=== PATIENT | female | born 1945 | race Asian ===

== ENCOUNTER 2018-01-15 14:06 | Inpatient (IN) | payer MEDICARE, OTHER ==
[~2018-01-15] VITALS: Ht 157.5 cm; Wt 61.3 kg
[2018-01-15 15:04] LABS: Eosinophils # (auto) 0 uL; Eosinophils % (auto) 0.1 % (0.0-7.0); Red Blood Cells 4.47 10^6/uL (4.0-5.20)
[2018-01-15 15:06] LABS: Basophils # (auto) 0.1 uL; Basophils % (auto) 0.4 % (0.0-2.0); Hematocrit 44.9 % (36.0-46.0); Hemoglobin 15.3 g/dL (12.2-16.2); Lymphocytes # (auto) 0.8 uL; Lymphocytes % (auto) 6.1 % (10.0-50.0); Mean Corpuscular Hemoglobin 34.2 pg (28.0-32.0); Mean Corpuscular Volume 100.7 fL (80.0-100.0); Monocytes # (auto) 0.5 uL; Neutrophils # (auto) 11.9 uL; Neutrophils % (auto) 89.4 % (37.0-80.0); Platelet Count (auto) 144 10^3/uL (140-450); Red Cell Distribution Width 12.8 % (11.8-14.3); White Blood Cell 13.3 10^3/uL (4.4-10.8)
[2018-01-15 15:16] LABS: Urine Bacteria NONE SEEN /hpf (None Seen); Urine Blood TRACE /uL (Negative); Urine Mucus FEW (None Seen); Urine WBC 1 /hpf (0 - 5)
[2018-01-15] MEDS ORDERED: SODIUM CHLORIDE 0.9% 1,000 ML IVB ONE (15:23)
[2018-01-15 15:29] LABS: Anion Gap 9 (5-15); BUN/Creatinine Ratio 23.2; Blood Urea Nitrogen 16 mg/dL (7-18); Carbon Dioxide 25 mmol/L (21-32); Chloride 105 mmol/L (98-107); GFR African American 108 mL/min; Glucose 220 mg/dL (74-106); Potassium 4.1 mmol/L (3.5-5.1); Sodium 139 mmol/L (136-145)
[2018-01-15 15:30] LABS: Alanine Aminotransferase 24 U/L (13-56); Albumin 3.8 g/dL (3.4-5.0); Alkaline Phosphatase 55 U/L (45-117); Aspartate Aminotransferase 18 U/L (15-37); Bilirubin, Total 0.5 mg/dL (0.2-1.0); Calcium 9.1 mg/dL (8.5-10.1); GFR Non-African American 89 mL/min; Total Protein 8.3 g/dL (6.4-8.2)
[2018-01-15] MEDS ORDERED: MORPHINE SULFATE 8mg/ml INJ SDV IV ONE ×2 (15:30→19:15)
[2018-01-15] MEDS ORDERED: ONDANSETRON HCL 4 MG/2 ML VIAL IV ONE ×2 (15:30→19:15)
[2018-01-15] MEDS ORDERED: MORPHINE SULF INJ 2 MG/ML SYRINGE 1ML ONE (15:44)
[2018-01-15 15:52] LABS: Magnesium 2.4 mg/dL (1.6-2.6)
[2018-01-15 16:04] LABS: INR 0.87 (0.9-1.15); Prothrombin Time 9.4 sec (9.27-12.13)
[2018-01-15] MEDS ORDERED: PIPERACILLIN-TAZOB 3.375GM 100 ML IV ONE (16:30)
[2018-01-15] MEDS ORDERED: metroNIDAZOLE 500MG/100ML 100 ML IV ONE (16:30)
[2018-01-15] MEDS: SODIUM CHLORIDE 0.9% 1,000 ML IV SCH (19:09)
[2018-01-15] MEDS ORDERED: DOCUSATE SOD 100 MG CAP PO PRN (19:15)
[2018-01-15] MEDS ORDERED: DEXTROSE (50%) 50ML SYRG IV PRN (19:15)
[2018-01-15] MEDS ORDERED: HYDROcodone-ACET 5/325MG TAB PO PRN (19:15)
[2018-01-15] MEDS ORDERED: ACETAMINOPHEN 325 MG TAB PO PRN (19:15)
[2018-01-15] MEDS ORDERED: ONDANSETRON HCL 4 MG/2 ML VIAL IV PRN (19:15)
[2018-01-15] MEDS ORDERED: cefTRIAXone 1GM/10ml IVPUSH 10 ML IV ONE (19:15)
[2018-01-15] MEDS ORDERED: SODIUM CHLORIDE 0.9% 2,000 ML IV ONE (19:15)
[2018-01-15] MEDS ORDERED: MORPHINE SULFATE 8mg/ml INJ SDV IV PRN (19:15)
[2018-01-15] MEDS ORDERED: MORPHINE SULFATE INJECTION 1 ML ONE (19:52)
[2018-01-15 21:01] VITALS: BP 158/69
[2018-01-15] MEDS: ASCORBIC ACID 500 MG TAB PO SCH (21:58)
[2018-01-15 22:00] VITALS: BP 152/69
[2018-01-15] MEDS: ACCU-CHEK COMFORT CURVE STRIP VI SCH (22:00)
[2018-01-15] MEDS: InsuLIN REG 1unit/0.01ml Soln (100units/ml) SC SCH (22:00)
[2018-01-15] MEDS: metroNIDAZOLE 500MG/100ML 100 ML IV SCH (22:00)
[2018-01-15] MEDS: TEMAZEPAM 15 MG CAP PO PRN (22:24)
[2018-01-16 04:57] VITALS: BP 97/54
[2018-01-16] MEDS: SODIUM CHLORIDE 0.9% 1,000 ML IV SCH ×3 (05:44→22:23)
[2018-01-16 05:52] LABS: Basophils # (auto) 0 uL; Basophils % (auto) 0.4 % (0.0-2.0); Eosinophils # (auto) 0 uL; Hematocrit 38.6 % (36.0-46.0); Hemoglobin 13.2 g/dL (12.2-16.2); Lymphocytes # (auto) 0.8 uL; Lymphocytes % (auto) 6.8 % (10.0-50.0); Mean Corpuscular Hemoglobin 34.5 pg (28.0-32.0); Mean Corpuscular Hgb Conc. 34.1 g/dL (32.0-36.0); Mean Corpuscular Volume 101.3 fL (80.0-100.0); Monocytes # (auto) 0.8 uL; Monocytes % (auto) 6.6 % (0.0-12.0); Neutrophils # (auto) 10.2 uL; Neutrophils % (auto) 86.2 % (37.0-80.0); Platelet Count (auto) 116 10^3/uL (140-450); Red Blood Cells 3.81 10^6/uL (4.0-5.20); Red Cell Distribution Width 12.4 % (11.8-14.3); White Blood Cell 11.8 10^3/uL (4.4-10.8)
[2018-01-16 06:16] LABS: Albumin 2.6 g/dL (3.4-5.0); BUN/Creatinine Ratio 27.9; Calcium 7.5 mg/dL (8.5-10.1); Potassium 3.6 mmol/L (3.5-5.1)
[2018-01-16 06:19] LABS: Bilirubin, Total 0.7 mg/dL (0.2-1.0); Total Protein 6.5 g/dL (6.4-8.2)
[2018-01-16] MEDS: ACCU-CHEK COMFORT CURVE STRIP VI SCH ×4 (06:26→22:24)
[2018-01-16] MEDS: metroNIDAZOLE 500MG/100ML 100 ML IV SCH ×3 (06:26→22:23)
[2018-01-16] MEDS: InsuLIN REG 1unit/0.01ml Soln (100units/ml) SC SCH ×4 (06:31→22:00)
[2018-01-16 08:00] VITALS: BP 96/54
[2018-01-16 09:00] VITALS: BP 96/54
[2018-01-16] MEDS: ZINC SULFATE 220 MG CAP PO SCH (10:02)
[2018-01-16] MEDS: cefTRIAXone 1GM/10ml IVPUSH 10 ML IV SCH (10:02)
[2018-01-16] MEDS: MULTIPLE VITAMIN TAB PO SCH (10:03)
[2018-01-16] MEDS: ASCORBIC ACID 500 MG TAB PO SCH ×2 (10:03→22:24)
[2018-01-16 13:00] VITALS: BP 108/58
[2018-01-16] MEDS ORDERED: EMPA1TAB PO (16:27)
[2018-01-16] MEDS ORDERED: METF-370 PO (16:27)
[2018-01-16] MEDS ORDERED: ATOR10TA52 PO (16:28)
[2018-01-16] MEDS ORDERED: LOSA25TA9 PO (16:28)
[2018-01-16 16:59] VITALS: BP 92/59
[2018-01-16 22:00] VITALS: BP 107/59
[2018-01-16] MEDS: TEMAZEPAM 15 MG CAP PO PRN (22:25)
[2018-01-17 05:00] VITALS: BP 110/59
[2018-01-17 06:00] LABS: Basophils # (auto) 0 uL; Basophils % (auto) 0.7 % (0.0-2.0); Eosinophils # (auto) 0.1 uL; Hemoglobin 12.4 g/dL (12.2-16.2); Neutrophils # (auto) 4.3 uL
[2018-01-17 06:03] LABS: Hematocrit 36.3 % (36.0-46.0); Lymphocytes % (auto) 16.8 % (10.0-50.0); Mean Corpuscular Hemoglobin 34.8 pg (28.0-32.0); Mean Corpuscular Hgb Conc. 34.2 g/dL (32.0-36.0); Mean Corpuscular Volume 101.6 fL (80.0-100.0); Monocytes # (auto) 0.4 uL; Monocytes % (auto) 6.6 % (0.0-12.0); Neutrophils % (auto) 74.9 % (37.0-80.0); Red Blood Cells 3.57 10^6/uL (4.0-5.20); Red Cell Distribution Width 12.7 % (11.8-14.3); White Blood Cell 5.7 10^3/uL (4.4-10.8)
[2018-01-17 06:10] LABS: Platelet Count (auto) 99 10^3/uL (140-450)
[2018-01-17 06:12] LABS: Calcium 7.5 mg/dL (8.5-10.1); Potassium 3.7 mmol/L (3.5-5.1)
[2018-01-17 06:14] LABS: BUN/Creatinine Ratio 30.8
[2018-01-17] MEDS: metroNIDAZOLE 500MG/100ML 100 ML IV SCH ×3 (06:32→22:14)
[2018-01-17] MEDS: SODIUM CHLORIDE 0.9% 1,000 ML IV SCH ×3 (06:32→18:40)
[2018-01-17] MEDS: InsuLIN REG 1unit/0.01ml Soln (100units/ml) SC SCH ×4 (06:32→22:00)
[2018-01-17] MEDS: ACCU-CHEK COMFORT CURVE STRIP VI SCH ×4 (06:32→22:14)
[2018-01-17] MEDS ORDERED: SUCCINYLCHOLINE CHLORIDE 20 MG/ML 10ML VIAL IV ONE (07:31)
[2018-01-17 08:00] VITALS: BP 119/70
[2018-01-17] MEDS ORDERED: LIDOCAINE HCL 2 %PF INJ 10ML AMP IJ ONE (08:16)
[2018-01-17] MEDS ORDERED: ETOMIDATE (2MG/ML) 20ML VIAL IV ONE (08:16)
[2018-01-17] MEDS ORDERED: MIDAZOLAM HCL 1MG/1ML-2 ML VIAL ONE (08:16)
[2018-01-17] MEDS ORDERED: ceFAZolin 1GM/100ML 100 ML IV ONE (08:31)
[2018-01-17 09:00] VITALS: BP 119/70
[2018-01-17] MEDS: cefTRIAXone 1GM/10ml IVPUSH 10 ML IV SCH (09:00)
[2018-01-17] MEDS ORDERED: POVIDONE IODINE 10 % TOPICAL OINT 30GM TOP ONE (09:04)
[2018-01-17] MEDS ORDERED: ACCU-CHEK COMFORT CURVE STRIP VI ONE (09:15)
[2018-01-17] MEDS ORDERED: ONDANSETRON HCL 4 MG/2 ML VIAL IV ONE (09:15)
[2018-01-17] MEDS ORDERED: NALOXONE HCL 0.4 MG/ML VIAL IV PRN (09:15)
[2018-01-17] MEDS ORDERED: MORPHINE SULFATE 8mg/ml INJ SDV IV PRN (09:15)
[2018-01-17] MEDS ORDERED: fentaNYL CITRATE 100 MCG/2 ML VL ONE (09:30)
[2018-01-17] MEDS ORDERED: ROCURONIUM 10MG/ML 10ML VIAL IV ONE (09:30)
[2018-01-17] MEDS ORDERED: KETOROLAC TROMETH 30 MG/ML 1ML VIAL ONE (09:50)
[2018-01-17] MEDS: ASCORBIC ACID 500 MG TAB PO SCH ×2 (10:00→22:14)
[2018-01-17] MEDS: MULTIPLE VITAMIN TAB PO SCH (10:00)
[2018-01-17] MEDS: ZINC SULFATE 220 MG CAP PO SCH (10:00)
[2018-01-17] MEDS ORDERED: NEOSTIGMINE 1 MG/ML INJ (10mg/10ML VIAL) ONE (10:14)
[2018-01-17] MEDS ORDERED: GLYCOPYRROLATE 0.2 MG/ML 1ML VIAL ONE (10:14)
[2018-01-17] MEDS: MORPHINE SULF INJ 2 MG/ML SYRINGE 1ML IV PRN ×2 (12:15→20:39)
[2018-01-17 13:00] VITALS: BP 136/62
[2018-01-17 17:05] VITALS: BP 119/49
[2018-01-17 22:00] VITALS: BP 116/61
[2018-01-17] MEDS: TEMAZEPAM 15 MG CAP PO PRN (22:15)
[2018-01-18] MEDS: SODIUM CHLORIDE 0.9% 1,000 ML IV SCH ×3 (04:44→20:17)
[2018-01-18 04:47] VITALS: BP 110/60
[2018-01-18 05:42] LABS: Basophils # (auto) 0 uL; Basophils % (auto) 0.4 % (0.0-2.0); Eosinophils # (auto) 0 uL; Eosinophils % (auto) 0.5 % (0.0-7.0); Hematocrit 37.6 % (36.0-46.0); Hemoglobin 12.7 g/dL (12.2-16.2); Lymphocytes # (auto) 0.7 uL; Mean Corpuscular Hemoglobin 34.9 pg (28.0-32.0); Mean Corpuscular Hgb Conc. 33.7 g/dL (32.0-36.0); Mean Corpuscular Volume 103.6 fL (80.0-100.0); Monocytes # (auto) 0.5 uL; Neutrophils % (auto) 84.1 % (37.0-80.0); Platelet Count (auto) 117 10^3/uL (140-450); Red Blood Cells 3.63 10^6/uL (4.0-5.20); Red Cell Distribution Width 12.7 % (11.8-14.3); White Blood Cell 8.3 10^3/uL (4.4-10.8)
[2018-01-18] MEDS: metroNIDAZOLE 500MG/100ML 100 ML IV SCH ×3 (05:48→21:18)
[2018-01-18 06:04] LABS: BUN/Creatinine Ratio 24.4; Calcium 7.2 mg/dL (8.5-10.1); Magnesium 2.1 mg/dL (1.6-2.6); Potassium 3.5 mmol/L (3.5-5.1)
[2018-01-18] MEDS: ACCU-CHEK COMFORT CURVE STRIP VI SCH ×4 (06:07→21:48)
[2018-01-18] MEDS: InsuLIN REG 1unit/0.01ml Soln (100units/ml) SC SCH ×4 (06:07→21:47)
[2018-01-18 09:00] VITALS: BP 117/55
[2018-01-18] MEDS: ASCORBIC ACID 500 MG TAB PO SCH ×2 (10:19→21:18)
[2018-01-18] MEDS: ZINC SULFATE 220 MG CAP PO SCH (10:19)
[2018-01-18] MEDS: MULTIPLE VITAMIN TAB PO SCH (10:19)
[2018-01-18] MEDS: cefTRIAXone 1GM/10ml IVPUSH 10 ML IV SCH (10:53)
[2018-01-18 13:00] VITALS: BP 128/56
[2018-01-18 17:00] VITALS: BP 135/68
[2018-01-18 20:00] VITALS: BP 131/65
[2018-01-18 22:17] VITALS: BP 131/65
[2018-01-18] MEDS ORDERED: diphenhdrAMINE HCL 25 MG CAP PO ONE (22:30)
[2018-01-19] MEDS: TEMAZEPAM 15 MG CAP PO PRN (00:33)
[2018-01-19 05:13] VITALS: BP 122/70
[2018-01-19] MEDS: metroNIDAZOLE 500MG/100ML 100 ML IV SCH (05:16)
[2018-01-19] MEDS: ACCU-CHEK COMFORT CURVE STRIP VI SCH ×2 (06:02→12:07)
[2018-01-19] MEDS: InsuLIN REG 1unit/0.01ml Soln (100units/ml) SC SCH ×2 (06:02→12:07)
[2018-01-19] MEDS: SODIUM CHLORIDE 0.9% 1,000 ML IV SCH (06:03)
[2018-01-19 08:49] VITALS: BP 132/69
[2018-01-19] MEDS: cefTRIAXone 1GM/10ml IVPUSH 10 ML IV SCH (08:53)
[2018-01-19] MEDS: ZINC SULFATE 220 MG CAP PO SCH (08:57)
[2018-01-19] MEDS: ASCORBIC ACID 500 MG TAB PO SCH (08:57)
[2018-01-19] MEDS: MULTIPLE VITAMIN TAB PO SCH (08:57)
[2018-01-19] MEDS ORDERED: METR500T PO (11:44)
[2018-01-19] MEDS ORDERED: LEVO500T21 PO (11:44)
[2018-01-19 12:00] VITALS: BP 131/73
== END 2018-01-19 13:35 | disposition home or self-care (01) | DRG 854 ==
LOC: ER 14:13 → OVERFLOW 14:14 → WEST WING 20:31
PROVIDERS: ADMIT Internal Medicine; ATTEND Internal Medicine
PROC: 0FT44ZZ Resection of Gallbladder, Percutaneous Endoscopic Approach (ICD-10-PCS; principal; 2018-01-17 09:18)
DX: A41.9 Sepsis, unspecified organism (principal); K81.0 Acute cholecystitis; E11.21 Type 2 diabetes mellitus with diabetic nephropathy; E11.22 Type 2 diabetes mellitus with diabetic chronic kidney disease; N18.2 Chronic kidney disease, stage 2 (mild); E78.5 Hyperlipidemia, unspecified; I10 Essential (primary) hypertension; E86.0 Dehydration
CPT/HCPCS: 36415; 71045; 74176; 76705; 80048; 80053; 81001; 82150; 82247; 82962; 83036; 83690; 83735; 84484; 85025; 85610; 85730; 86850; 86900; 86901; 87040; 93005; 94761; 96361; 96365; 96375; J0330; J0690; J1815; J1885; J2250; J2405; J2543; J3490

== ENCOUNTER 2018-01-22 19:22 | Emergency (ER) | payer MEDICARE ==
[~2018-01-22] VITALS: Ht 160 cm; Wt 54.4 kg
[~2018-01-22 19:22] MED LIST: ATOR10TA52 PO; EMPA1TAB PO; LEVO500T21 PO; LOSA25TA9 PO; METF-370 PO; METR500T PO
[2018-01-22] MEDS ORDERED: SODIUM CHLORIDE 0.9% 1,000 ML IV ONE (21:10)
[2018-01-22] MEDS ORDERED: MORPHINE SULFATE 8mg/ml INJ SDV IV ONE (21:15)
[2018-01-22] MEDS ORDERED: ONDANSETRON HCL 4 MG/2 ML VIAL IV ONE (21:15)
[2018-01-22 21:41] LABS: Basophils # (auto) 0.1 uL; Hematocrit 35.7 % (36.0-46.0); Hemoglobin 12.3 g/dL (12.2-16.2); Mean Corpuscular Hemoglobin 34.3 pg (28.0-32.0); Monocytes # (auto) 0.6 uL; Monocytes % (auto) 4.3 % (0.0-12.0); Nucleated Red Blood Cells % 0.1 %; Red Blood Cells 3.57 10^6/uL (4.0-5.20); Red Cell Distribution Width 12.8 % (11.8-14.3)
[2018-01-22 21:43] LABS: Basophils % (auto) 0.7 % (0.0-2.0); Eosinophils # (auto) 0.3 uL; Eosinophils % (auto) 2.1 % (0.0-7.0); Lymphocytes # (auto) 1.9 uL; Lymphocytes % (auto) 14.3 % (10.0-50.0); Mean Corpuscular Hgb Conc. 34.3 g/dL (32.0-36.0); Neutrophils # (auto) 10.5 uL; Neutrophils % (auto) 78.6 % (37.0-80.0); White Blood Cell 13.3 10^3/uL (4.4-10.8)
[2018-01-22 21:44] LABS: Platelet Count (auto) 110 10^3/uL (140-450)
[2018-01-22] MEDS ORDERED: MEPERIDINE HCL (25 MG/ML) 1ML VIAL IV ONE (21:45)
[2018-01-22 21:48] LABS: INR 0.96 (0.9-1.15); Partial Thromboplastin Time 23.6 sec (23.78-33.04); Prothrombin Time 10.3 sec (9.27-12.13)
[2018-01-22 21:50] LABS: Alanine Aminotransferase 16 U/L (13-56); Albumin 2.9 g/dL (3.4-5.0); Anion Gap 12 (5-15); Aspartate Aminotransferase 18 U/L (15-37); BUN/Creatinine Ratio 20.6; Blood Urea Nitrogen 13 mg/dL (7-18); Calcium 8.2 mg/dL (8.5-10.1); Carbon Dioxide 22 mmol/L (21-32); Chloride 108 mmol/L (98-107); GFR African American 120 mL/min; GFR Non-African American 99 mL/min; Glucose 252 mg/dL (74-106); Lipase 359 U/L (73-393); Potassium 3.3 mmol/L (3.5-5.1); Sodium 142 mmol/L (136-145)
[2018-01-22 21:55] LABS: Alkaline Phosphatase 55 U/L (45-117); Bilirubin, Total 0.3 mg/dL (0.2-1.0); Total Protein 6.6 g/dL (6.4-8.2)
[2018-01-23] MEDS ORDERED: MAGNESIUM CITRATE SOLUTION 300 ML BTL PO ONE (00:30)
[2018-01-23 01:15] VITALS: BP 136/72
== END 2018-01-23 03:02 | disposition home or self-care (01) ==
LOC: ER 19:22
DX: K56.41 Fecal impaction (principal); E11.9 Type 2 diabetes mellitus without complications; Z90.710 Acquired absence of both cervix and uterus; Z90.49 Acquired absence of other specified parts of digestive tract
CPT/HCPCS: 36415; 74176; 80053; 83605; 83690; 84484; 85025; 85610; 85730; 87040; 93005; 96374; 96375; 99285; J2175; J2405